=== PATIENT | female | born 1960 | race Caucasian/White ===

== ENCOUNTER 2021-03-27 11:55 | Emergency (ER) | payer OTHER ==
[2021-03-27 13:31] LABS: HEMOGLOBIN 16.5 gm/dl (12.3-15.3); RED BLOOD COUNT 5.11 M/UL (4.00-5.10); WHITE BLOOD COUNT 13.6 K/UL (4.5-11.0)
[2021-03-27 13:38] LABS: BUN/CREATININE RATIO 19 (0-10)
[2021-03-27] MEDS ORDERED: PREDNISONE20 MG PO (14:32)
[2021-03-30] MEDS ORDERED: SINGULAIR10 MG PO (07:29)
[2021-03-30] MEDS ORDERED: SYMBICORT 16010.2 GM INH (07:30)
[2021-03-30] MEDS ORDERED: FLONASE 0.05% N16 GM (07:30)
== END 2021-03-27 14:46 | disposition home or self-care (01) ==
LOC: ER1 11:55
PROVIDERS: Physician Assistant Medical
DX: R04.2 Hemoptysis (principal); J44.9 Chronic obstructive pulmonary disease, unspecified; Z85.118 Personal history of other malignant neoplasm of bronchus and lung; Z20.822 Contact with and (suspected) exposure to COVID-19
CPT/HCPCS: 71045; 80053; 85025; 85610; 99283; U0002

== ENCOUNTER 2021-03-29 17:32 | Emergency (ER) | payer OTHER ==
[~2021-03-29 17:32] MED LIST: PREDNISONE20 MG PO
[2021-03-30] MEDS ORDERED: SINGULAIR10 MG PO (07:29)
[2021-03-30] MEDS ORDERED: FLONASE 0.05% N16 GM (07:30)
[2021-03-30] MEDS ORDERED: SYMBICORT 16010.2 GM INH (07:30)
== END 2021-03-29 18:41 | disposition left against medical advice (07) ==
LOC: ER1 17:32
DX: Z53.21 Procedure and treatment not carried out due to patient leaving prior to being seen by health care provider (principal)

== ENCOUNTER → 2021-03-30 | Day surgery (SDC) | payer OTHER ==
[~2021-03-30] MED LIST changes: +FLONASE 0.05% N16 GM; +SINGULAIR10 MG PO; +SYMBICORT 16010.2 GM INH
== END | disposition home or self-care (01) ==
LOC: OR 03-29 07:30
DX: R04.2 Hemoptysis (principal); J43.9 Emphysema, unspecified; Z90.2 Acquired absence of lung [part of]; Z87.891 Personal history of nicotine dependence; Z85.118 Personal history of other malignant neoplasm of bronchus and lung; Z79.899 Other long term (current) drug therapy
CPT/HCPCS: J2704; J7120